=== PATIENT | male | born 1955 | race Caucasian/White ===

== ENCOUNTER 2018-06-25 18:59 | Emergency (ER) | payer OTHER ==
[2018-06-25 19:31] VITALS: BP 123/72
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
== END 2018-06-25 20:34 ==
LOC: ERH 18:59
DX: Z04.1 Encounter for examination and observation following transport accident (principal)